=== PATIENT | female | born 1985 | race Hispanic/Latino ===

== ENCOUNTER 2018-10-01 19:24 | Emergency (ER) | payer BC ==
[~2018-10-01] VITALS: Ht 165.1 cm; Wt 81.2 kg
[2018-10-02 13:12] LABS: FREE T4 (FREE THYROXINE) 1.01 ng/dL (0.9-1.8); THYROID STIMULATING HORMONE 1.933 uIU/mL (0.350-4.940)
== END 2018-10-01 21:35 | disposition home or self-care (01) ==
LOC: FSED 19:24
DX: R07.89 Other chest pain (principal)
CPT/HCPCS: 36415; 80053; 81003; 82553; 84439; 84443; 84484; 85025; 85379; 99283